=== PATIENT | female | born 1980 | race Caucasian/White ===

== ENCOUNTER 2023-02-09 22:53 | Outpatient (CLI) | payer SELFPAY | END 2023-02-09 23:59 | disposition EMS.NT | LOC: EMS 22:53 | DX: R19.7 Diarrhea, unspecified (principal); R55 Syncope and collapse ==

== ENCOUNTER 2023-03-07 21:27 | Emergency (ER) | payer OTHER ==
[2023-03-07 22:51] VITALS: BP 114/61
--- NOTE | 2023-03-07 23:10 | ED Physician Documentation ---
PD HPI ABD PAIN - Stated complaint Stated Complaint: V,D,BLOATING - Chief complaint Chief Complaint: Abd Pain - History obtained from History obtained from: Patient - Additional information Additional information: HPI from patient. Patient c/o nausea, vomiting, diarrhea. Symptoms began at approximately 7:30 PM tonight while at home. 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 Denies h/o similar symptoms, denies fever, denies chances of . 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 - Past Surgical History Past Surgical History: Yes - Present Medications Home Medications: Ambulatory Orders Medication Instructions Recorded Confirmed Ondansetron Odt [Zofran Odt] 4 mg TL Q6H PRN #14 tablet 03/07/23 - Allergies Allergies/Adverse Reactions: Allergies Allergy/AdvReac Type Severity Reaction Status Date / Time No Known Drug Allergies Allergy Verified 03/07/23 21:43 - Living Situation Living Arrangement: reports: At home PD ED PE NORMAL - Vitals Vital signs reviewed: Yes - General General: Alert and oriented X 3, No acute distress, Well developed/nourished - HEENT HEENT: Moist mucous membranes - Cardiac Cardiac: RRR, No murmur - Respiratory Respiratory: No respiratory distress, Clear bilaterally - Abdomen Abdomen: Soft, Non distended, Other (mild/moderate TTP epigastrium and RLQ without rebound or guarding) - Back Back: No CVA TTP Results - Vitals Vitals: Oxygen O2 Source Room air PD Medical Decision Making - ED course Complexity details: considered differential, d/w patient ED course: c/o n/v/d and found to have TTP in epigastrium and RLQ . I recommended IV for fluids, anti-nauseant (zofran), blood tests, as well as CT A/P; differential would include pancreatitis, cholelithiasis, cholecystitis, appendicitis. Patient declines all of this and says she just wants PO anti-nauseant at this time. She is given TL zofran and rx for same. Return precautions were carefully reviewed, and I encouraged her to return at any time she wants to be reevaluated, particularly if her symptoms worsen in any way. I discussed my concerns regarding the differential diagnosis and patient verbalizes understanding of these concerns and return precautions. Departure - Departure Disposition: 01 Home, Self Care Clinical Impression: Abdominal pain, Nausea & vomiting Condition: Good Instructions: ED Abdominal Pain Female Non-Specific Abdominal Pain, ED Diet Vomiting Diarrhea, ED Nausea Vomiting Prescriptions: Ondansetron Odt [Zofran Odt] 4 mg TL Q6H PRN #14 tablet PRN Reason: Nausea / Vomiting Comments: Based on your symptoms and physical exam, I recommended that we establish an IV for intravenous fluids and an antinausea medication, undertaking blood test, as well as a CT scan of your abdomen and pelvis. You have declined these tests and treatments. Please come back to the emergency department at any time that you feel you need to be reevaluated, but follow-up with your primary care provider as soon as can be arranged for reevaluation. Discharge Date/Time: 03/07/23 23:38
[2023-03-07] MEDS ORDERED: ONDANSETRON ODT 4 MG TABLET TL STA (23:32)
== END 2023-03-07 23:38 | disposition home or self-care (01) ==
LOC: ED 21:27
DX: R11.2 Nausea with vomiting, unspecified (principal); R19.7 Diarrhea, unspecified; R10.9 Unspecified abdominal pain
CPT/HCPCS: 99282; 99284; Q0162

== ENCOUNTER 2023-09-24 07:06 | Emergency (ER) | payer OTHER ==
[2023-09-24] MEDS ORDERED: SODIUM CHLORIDE 0.9% 1,000 ML IV STA (07:09)
[2023-09-24] MEDS ORDERED: ONDANSETRON 4 MG/2 ML VIAL IVP STA (07:09)
[2023-09-24 07:26] VITALS: O2SAT 100
--- NOTE | 2023-09-24 07:30 | ED Physician Documentation ---
PD HPI NVD - Stated complaint Stated Complaint: N/D/V/CHILLS - Chief complaint Chief Complaint: Abd Pain - History obtained from History obtained from: Patient - Additonal information Additional information: Patient comes to the emergency department chief complaint of nausea, vomiting, and diarrhea that started around 5:00 this morning. She states a couple other people in her household have been sick, one with similar GI symptoms. She states she has 7 kids at home and her is deployed and she has been under a lot of stress lately. The patient denies any fevers but has had some cold sweats when her nausea kicks out. She says she has some pressure in her epigastric area but otherwise no abdominal pain. No urinary or vaginal symptoms. She has a history of "gallbladder issues", but has never had her gallbladder removed. She has a history of tubal ligation, tubal ligation reversal, and fallopian tube removal. She does not remember which side. Patient states that she is on Zoloft and Colace but otherwise no medications. She is otherwise healthy. 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 - Past Surgical History Past Surgical History: Yes - Present Medications Home Medications: Ambulatory Orders Medication Instructions Recorded Confirmed Ondansetron Odt [Zofran Odt] 4 mg TL Q6H PRN #14 tablet 03/07/23 Ondansetron Odt [Zofran] 4 mg TL Q6H PRN #10 tablet 09/24/23 - Allergies Allergies/Adverse Reactions: Allergies Allergy/AdvReac Type Severity Reaction Status Date / Time No Known Drug Allergies Allergy Verified 03/07/23 21:43 - Social History Does the pt smoke?: No Smoking Status: Never smoker Does the pt drink ETOH?: No Does the pt have substance abuse?: No - Immunizations Immunizations are current?: Yes - POLST Patient has POLST: No PD ED PE NORMAL - Vitals Vital signs reviewed: Yes - General General: Alert and oriented X 3, No acute distress, Well developed/nourished, Other (The patient appears moderately uncomfortable but otherwise in no apparent distress.) - HEENT HEENT: Atraumatic, PERRL, EOMI, Moist mucous membranes - Neck Neck: Supple, no meningeal sign - Cardiac Cardiac: RRR, No murmur - Respiratory Respiratory: No respiratory distress, Clear bilaterally - Abdomen Abdomen: Soft, Non distended, Other (Mild diffuse tenderness across low abdomen, periumbilical area, and epigastric area. No rebound or guarding.) - Derm Derm: Normal color, Warm and dry, No rash - Extremities Extremities: No deformity, No edema - Neuro Neuro: Alert and oriented X 3 - Psych Psych: Normal mood, Normal affect Results - Vitals Vitals: Oxygen O2 Source Room air - Labs Labs: Laboratory Tests 09/24/23 09/24/23 07:27 07:27 WBC 6.2 RBC 4.68 Hgb 10.2 L Hct 33.1 L MCV 70.7 L MCH 21.8 L MCHC 30.8 L RDW 16.0 H Plt Count 219 MPV 12.3 H Neut # (Auto) 4.5 Lymph # (Auto) 1.2 L [place] # (Auto) 0.3 Eos # (Auto) 0.0 Baso # (Auto) 0.1 Absolute Nucleated RBC 0.00 Nucleated RBC % 0.0 Sodium 135 Potassium 3.5 Chloride 103 Carbon Dioxide 24 Anion Gap 8.0 BUN 8 Creatinine 0.8 Estimated GFR (MDRD) 79 L Glucose 110 H Calcium 9.5 Total Bilirubin 0.4 AST 12 ALT 8 L Alkaline Phosphatase 64 Total Protein 7.4 Albumin 4.5 Globulin 2.9 Albumin/Globulin Ratio 1.6 Lipase 29 PD Medical Decision Making - ED course Complexity details: reviewed results, re-evaluated patient, considered differential, d/w patient ED course: The patient was treated symptomatically with IV fluid, Phenergan and Zofran and was worked up with laboratory studies including ER abdominal panel and CBC. Labs were unremarkable, and pt was feeling better on re-evaluation, and I felt she was stable for d/c home. We have discussed home management of the sx, as well as the usual indications for return. Departure - Departure Disposition: Home, Self Care Clinical Impression: Gastroenteritis Condition: Stable Instructions: ED Gastroenteritis Viral Prescriptions: Ondansetron Odt [Zofran] 4 mg TL Q6H PRN #10 tablet PRN Reason: Nausea / Vomiting Comments: Your labs look good. You most likely have one of the many viral illnesses that are going around in the community at this time. In general, the worst of the symptoms usually last the first few days and then your digestive system gradually recovers. A prescription for nausea medication has been electronically transmitted to the [facility] pharmacy in [place], your pharmacy of choice on record. Please take these as needed. You should have only clear liquids until you have been without vomiting for 24 hours. In fact, it is advisable that you not put anything in her stomach for the next 6 hours to give your stomach a chance to settle down and recover. After that, you may take a melt in the mouth Zofran and then wait 30 to 60 minutes. After that, you may try taking 1 or 2 ice chips at a time or a small sip or 2 of water. If this stays down for 20 minutes, you may do it again. If you go through few cycles like this without vomiting, then you may gradually bring the sips closer together and begin to take an more liquid. If by tomorrow you have had no further vomiting, then you may begin to introduce simple starches, such as saltine crackers or Ramen noodles. Forms: PCP List Discharge Date/Time: 09/24/23 10:28
[2023-09-24 07:35] LABS: BASOPHILS # (AUTO) 0.1 10^3/uL (0.0-0.1); BASOPHILS % (AUTO) 1.3 %; EOSINOPHILS % (AUTO) 0.7 %; HCT - HEMATOCRIT 33.1 % (37.0-47.0); HGB - HEMOGLOBIN 10.2 g/dL (12.0-16.0); LYMPHOCYTES # (AUTO) 1.2 10^3/uL (1.5-3.5); LYMPHOCYTES % (AUTO) 19.3 %; MEAN CORPUSCULAR HEMOGLOBIN 21.8 pg (27.0-31.0); MEAN CORPUSCULAR HGB CONC 30.8 g/dL (32.0-36.0); MEAN CORPUSCULAR VOLUME 70.7 fL (81.0-99.0); MEAN PLATELET VOLUME 12.3 fL (7.9-10.8); MONOCYTES # (AUTO) 0.3 10^3/uL (0.0-1.0); NEUTROPHILS # (AUTO) 4.5 10^3/uL (1.5-6.6); NEUTROPHILS % (AUTO) 73.4 %; PLT - PLATELET COUNT 219 10^3/uL (130-450); RED BLOOD COUNT 4.68 10^6/uL (4.20-5.40); WHITE BLOOD COUNT 6.2 x10^3/uL (4.8-10.8)
[2023-09-24 07:45] LABS: ALBUMIN 4.5 g/dL (3.2-5.5); ALBUMIN/GLOBULIN RATIO 1.6 (1.0-2.2); BILIRUBIN,TOTAL 0.4 mg/dL (0.2-1.0); CALCIUM 9.5 mg/dL (8.5-10.3); CREATININE 0.8 mg/dL (0.6-1.3); POTASSIUM 3.5 mmol/L (3.5-4.5); TOTAL PROTEIN 7.4 g/dL (6.4-8.9)
[2023-09-24] MEDS ORDERED: PROMETHAZINE INJ 25 MG in SODIUM CHLORIDE 0.9% 50 ML IV STA (08:54)
[2023-09-24 10:33] VITALS: BP 114/60
== END 2023-09-24 10:28 | disposition home or self-care (01) ==
LOC: ED 07:06
DX: K52.9 Noninfective gastroenteritis and colitis, unspecified (principal)
CPT/HCPCS: 36415; 80053; 83690; 85025; 96365; 96375; 99283; 99284; J7040

== ENCOUNTER 2023-09-25 06:41 | Outpatient (CLI) | payer OTHER | END 2023-09-25 06:42 | disposition EMS.NT | LOC: EMS 06:41 | DX: R00.0 Tachycardia, unspecified (principal) ==

== ENCOUNTER 2023-09-26 03:55 | Emergency (ER) | payer OTHER ==
--- NOTE | 2023-09-26 04:10 | ED Physician Documentation ---
PD HPI CHEST PAIN - Stated complaint Stated Complaint: CHEST PX/ N/V - Chief complaint Chief Complaint: Cardiac - History obtained from History obtained from: Patient, Family (daughter) - Additional information Additional information: 43-year-old woman with History of anxiety on Zoloft, recent ED visit 2 days prior presents with similar symptoms tonight of nausea, vomiting, diarrhea for the past couple of days along with some epigastric pain radiating to the chest.Patient endorses + sick contacts (Children at home sick), 1 with similar GI symptoms. 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 Patient denies fevers but does endorse chills. Past surgical history tubal ligation, ligation reversal, fallopian tube removal. Her daughter notes that the patient takes a daily marijuana tincture and has had issues with nausea in the past. Daughter is concerned that this may be a chronic problem related to cannabis. Patient s tates she has had similar nausea in the past but denies improvement with hot showers. 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 Psych: Depression - Past Surgical History Past Surgical History: Yes - Present Medications Home Medications: Ambulatory Orders Medication Instructions Recorded Confirmed Ondansetron Odt [Zofran Odt] 4 mg TL Q6H PRN #14 tablet 03/07/23 Ondansetron Odt [Zofran] 4 mg TL Q6H PRN #10 tablet 09/24/23 Promethazine [Phenergan] 25 mg PO Q6H PRN #10 tablet 09/26/23 - Allergies Allergies/Adverse Reactions: Allergies Allergy/AdvReac Type Severity Reaction Status Date / Time No Known Drug Allergies Allergy Verified 03/07/23 21:43 - Social History Does the pt smoke?: No Smoking Status: Never smoker Does the pt drink ETOH?: No Does the pt have substance abuse?: No - Immunizations Immunizations are current?: Yes - POLST Patient has POLST: No PD ED PE NORMAL - Vitals Vital signs reviewed: Yes - General General: Alert and oriented X 3, No acute distress, Well developed/nourished, Other (Anxious appearing) - HEENT HEENT: Atraumatic, PERRL, EOMI - Neck Neck: Supple, no meningeal sign - Cardiac Cardiac: RRR - Respiratory Respiratory: No respiratory distress, Clear bilaterally - Abdomen Abdomen: Non tender, Non distended, Other (Epigastrium discomfort to palpation) - Derm Derm: Normal color, Warm and dry Results - Vitals Vitals: Vital Signs - 24 hr 09/26/23 09/26/23 09/26/23 04:01 04:06 05:30 Temperature 37 C 37 C 37 C Heart Rate 64 89 83 Respiratory 20 20 17 Rate Blood Pressure 143/78 H 108/67 127/85 H O2 Saturation 100 100 100 Oxygen O2 Source Room air - EKG (time done) 0400 EKG releavant findings:: EKG personally interpreted by author of this note. Relevant findings are: Rate: Rate (enter#) (64) Rhythm: NSR [place]: Normal Intervals: Normal NV QRS: Normal Ischemia: Normal ST segments - Labs Labs: Laboratory Tests 09/26/23 09/26/23 04:11 04:11 WBC 7.0 RBC 4.37 Hgb 9.3 L Hct 30.7 L MCV 70.3 L MCH 21.3 L MCHC 30.3 L RDW 16.1 H Plt Count 200 MPV 12.3 H Neut # (Auto) 4.5 Lymph # (Auto) 1.9 [place] # (Auto) 0.4 Eos # (Auto) 0.0 Baso # (Auto) 0.1 Absolute Nucleated RBC 0.00 Nucleated RBC % 0.0 Sodium 136 Potassium 3.1 L Chloride 105 Carbon Dioxide 23 Anion Gap 8.0 BUN 7 Creatinine 0.8 Estimated GFR (MDRD) 79 L Glucose 99 Calcium 9.2 Total Bilirubin 0.3 AST 11 ALT 6 L Alkaline Phosphatase 53 Troponin I High Sens 2.4 Total Protein 6.7 Albumin 4.1 Globulin 2.6 Albumin/Globulin Ratio 1.6 Lipase 43 PD Medical Decision Making - ED course ED course: 43-year-old woman nausea, vomiting, diarrhea and epigastric pain for the past 2 to 3 days with subjective chills. CBC, abdominal panel unremarkable aside from some anemia and mild hypokalemia, likely due to vomiting. patient is aware she has had anemia in the past but unsure of cause. EKG, chest x-ray benign. Symptomatic care provided with improvement in pain and nausea. Plan to follow- up outpatient with PCM for referral to GI. Recommendations were provided for GI specialist. Return precautions given. Departure - Departure Disposition: 01 Home, Self Care Clinical Impression: Atypical chest pain, Nausea and vomiting, Diarrhea Condition: Stable Instructions: ED Diet Vomiting Diarrhea Follow-Up: HORTENSIA ALMENDAREZ MD [Physician No Access] - Prescriptions: Promethazine [Phenergan] 25 mg PO Q6H PRN #10 tablet PRN Reason: Nausea / Vomiting Comments: You were seen in the emergency department for Nausea, vomiting, abdominal abdominal pain and chest pain. Your lab work looked okay except for some anemia and mildly low potassium. X-ray/ekg was normal. follow-up with your primary care provider to have this rechecked and to do further tests for anemia. Electronic prescription for phenergan was sent to your pharmacy. Please follow-up with GI (referral provided) and return to the emergency department if you have any new or worsening symptoms or other concerns. Forms: PCP List Discharge Date/Time: 09/26/23 05:30
[2023-09-26 04:27] LABS: BASOPHILS # (AUTO) 0.1 10^3/uL (0.0-0.1); BASOPHILS % (AUTO) 1.3 %; EOSINOPHILS % (AUTO) 0.6 %; HCT - HEMATOCRIT 30.7 % (37.0-47.0); HGB - HEMOGLOBIN 9.3 g/dL (12.0-16.0); LYMPHOCYTES # (AUTO) 1.9 10^3/uL (1.5-3.5); LYMPHOCYTES % (AUTO) 27.4 %; MEAN CORPUSCULAR HEMOGLOBIN 21.3 pg (27.0-31.0); MEAN CORPUSCULAR HGB CONC 30.3 g/dL (32.0-36.0); MEAN CORPUSCULAR VOLUME 70.3 fL (81.0-99.0); MEAN PLATELET VOLUME 12.3 fL (7.9-10.8); MONOCYTES # (AUTO) 0.4 10^3/uL (0.0-1.0); MONOCYTES % (AUTO) 6.1 %; NEUTROPHILS # (AUTO) 4.5 10^3/uL (1.5-6.6); NEUTROPHILS % (AUTO) 64.3 %; PLT - PLATELET COUNT 200 10^3/uL (130-450); RED BLOOD COUNT 4.37 10^6/uL (4.20-5.40); RED CELL DISTRIBUTION WIDTH 16.1 % (12.0-15.0)
[2023-09-26 04:28] VITALS: O2SAT 100
[2023-09-26 04:37] LABS: ALBUMIN 4.1 g/dL (3.2-5.5); ALBUMIN/GLOBULIN RATIO 1.6 (1.0-2.2); BILIRUBIN,TOTAL 0.3 mg/dL (0.2-1.0); CALCIUM 9.2 mg/dL (8.5-10.3); CREATININE 0.8 mg/dL (0.6-1.3); POTASSIUM 3.1 mmol/L (3.5-4.5); TOTAL PROTEIN 6.7 g/dL (6.4-8.9)
[2023-09-26] MEDS: SODIUM CHLORIDE 0.9% 1,000 ML IV STA (04:39)
[2023-09-26 04:42] LABS: TROPONIN I HIGH SENSITIVITY 2.4 ng/L (2.3-14.8)
[2023-09-26] MEDS: LORazepam 2 MG/ML VIAL IVP STA (04:47)
[2023-09-26] MEDS: KETOROLAC 15 MG/ML VIAL IVP STA (04:47)
[2023-09-26] MEDS: FAMOTIDINE 20 MG/2 ML VIAL IVP STA (04:48)
[2023-09-26] MEDS: PROMETHAZINE INJ 25 MG in SODIUM CHLORIDE 0.9% 50 ML IV STA (04:48)
[2023-09-26] MEDS ORDERED: PROMETHAZINE 25 MG/1 ML VIAL ONE (04:56)
[2023-09-26] MEDS ORDERED: POTASSIUM CHLOR 10 MEQ/100 ML 10 MEQ/100 ML BAG IV STA (05:13)
[2023-09-26 05:31] VITALS: BP 127/85
--- NOTE | 2023-09-26 08:06 | XRAY Report ---
PROCEDURE: Chest 1 View X-Ray INDICATIONS: Chest pain TECHNIQUE: One view of the chest was acquired. COMPARISON: None. FINDINGS: Surgical changes and devices: None. Lungs and pleura: No pleural effusions or pneumothorax. Lungs are clear. Mediastinum: Mediastinal contours appear normal. Heart size is normal. Bones and chest wall: No suspicious bony lesions. Overlying soft tissues appear unremarkable. IMPRESSION: No acute radiographic abnormality. Agree with preliminary report. Reviewed by: Andrade Vines MD on 09/26/2023 8:05 AM [facility] Approved by: Andrade Vines MD on 09/26/2023 8:05 AM [facility] Station ID: [id number]
== END 2023-09-26 05:30 | disposition home or self-care (01) ==
LOC: ED 03:55
DX: R07.89 Other chest pain (principal); R11.2 Nausea with vomiting, unspecified; R19.7 Diarrhea, unspecified
CPT/HCPCS: 36415; 80053; 83690; 84484; 85025; 93005; 96374; 96375; 99284

== ENCOUNTER 2023-10-31 15:35 | Emergency (ER) | payer OTHER ==
[2023-10-31 15:42] VITALS: O2SAT 100
[2023-10-31] MEDS ORDERED: SODIUM CHLORIDE 0.9% 1,000 ML IV STA (15:49)
[2023-10-31] MEDS ORDERED: ONDANSETRON 4 MG/2 ML VIAL IVP STA (15:49)
[2023-10-31] MEDS ORDERED: MECLIZINE 12.5 MG TABLET PO STA (15:50)
--- NOTE | 2023-10-31 16:00 | ED Physician Documentation ---
History of Present Illness - Stated complaint Stated Complaint: SHAKY/N/V/STOMACH PX - Chief complaint Chief Complaint: Abd Pain - History obtained from History obtained from: Patient - Additonal information Additional information: Patient is a 43-year-old female with a history of anxiety (on Zoloft) presenting for evaluation of vertigo along with nausea and vomiting starting an hour ago. She reports also feeling lightheaded and thinks she may have had a syncopal episode while seated in the kitchen that was brief and witnessed by her daughter. Denies head injury. Does not take a blood thinner. Reports being under significant amount of stress as she has 7 children and her has been deployed since August. She tried taking a Dramamine without improvement in her symptoms. She believes she also tried taking a dose of meclizine that she had at home but also believes that she vomited this up with the Dramamine. She has had vertigo in the past but Usually is able to keep down medications which help her.Denies recent cold-like symptoms. No chest pain or shortness of air. Denies concerns for as again her spouse is deployed. No diarrhea or dysuria. Review of Systems Constitutional: denies: Fever Cardiac: denies: Chest pain / pressure Respiratory: denies: Dyspnea GI: reports: Nausea, Vomiting. denies: Abdominal Pain : denies: Dysuria Neurologic: reports: Syncope. 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 : None HEENT: None Psych: Depression Musculoskeletal: None Derm: None - Past Surgical History Past Surgical History: Yes - Present Medications Home Medications: Ambulatory Orders Medication Instructions Recorded Confirmed Ondansetron Odt [Zofran Odt] 4 mg TL Q6H PRN #14 tablet 03/07/23 Ondansetron Odt [Zofran] 4 mg TL Q6H PRN #10 tablet 09/24/23 Promethazine [Phenergan] 25 mg PO Q6H PRN #10 tablet 09/26/23 Meclizine HCl [Motion Sickness] 25 mg PO Q6H PRN #20 tablet 10/31/23 Ondansetron Odt [Zofran] 4 mg TL Q6H PRN #10 tablet 10/31/23 - Allergies Allergies/Adverse Reactions: Allergies Allergy/AdvReac Type Severity Reaction Status Date / Time No Known Drug Allergies Allergy Verified 10/31/23 15:38 - Social History Does the pt smoke?: No Smoking Status: Never smoker Does the pt drink ETOH?: No Does the pt have substance abuse?: No - Immunizations Immunizations are current?: Yes - POLST Patient has POLST: No PD ED PE NORMAL - General General: Alert and oriented X 3, No acute distress, Well developed/nourished - HEENT HEENT: Atraumatic, PERRL, EOMI, Moist mucous membranes, Pharynx benign, Other (No rotary nystagmus; Vertigo worse with head turning to right) - Neck Neck: Supple, no meningeal sign - Cardiac Cardiac: RRR, Strong equal pulses - Respiratory Respiratory: No respiratory distress, Clear bilaterally - Abdomen Abdomen: Normal bowel sounds, Soft, Non tender, Non distended - Derm Derm: Warm and dry - Extremities Extremities: No deformity - Neuro Neuro: Alert and oriented X 3, senior account executive 2-12 intact, No motor deficit, No sensory deficit, Normal speech Results - Vitals Vitals: Vital Signs - 24 hr 10/31/23 10/31/23 15:38 17:19 Temperature 36.8 C 36.9 C Heart Rate 64 60 Respiratory 16 18 Rate Blood Pressure 121/57 L 107/50 L O2 Saturation 100 100 Oxygen O2 Source Room air - EKG (time done) 1615 EKG releavant findings:: EKG personally interpreted by author of this note. Relevant findings are: Rate 57, sinus bradycardia, no STEMI, QTc 426 - Labs Labs: Laboratory Tests 10/31/23 10/31/23 10/31/23 16:00 16:00 16:00 WBC 7.5 RBC 4.40 Hgb 9.3 L Hct 30.5 L MCV 69.3 L MCH 21.1 L MCHC 30.5 L RDW 17.3 H Plt Count 188 MPV 11.5 H Neut # (Auto) 5.0 Lymph # (Auto) 1.9 [place] # (Auto) 0.5 Eos # (Auto) 0.0 Baso # (Auto) 0.1 Absolute Nucleated RBC 0.00 Nucleated RBC % 0.0 Manual Slide Review Indicated Platelet Estimate NORMAL (130-450,000) Platelet Morphology NORMAL APPEARANCE RBC Morph Micro Appear 1+ OVALOCYTES Sodium 135 Potassium 3.5 Chloride 102 Carbon Dioxide 23 Anion Gap 10.0 BUN 7 Creatinine 0.7 Estimated GFR (MDRD) 92 Glucose 97 Calcium 9.6 Total Bilirubin 0.3 AST 12 ALT 8 L Alkaline Phosphatase 68 Total Protein 7.8 Albumin 4.5 Globulin 3.3 Albumin/Globulin Ratio 1.4 Lipase 29 Serum HCG, Qual NEGATIVE PD Medical Decision Making - ED course Complexity details: reviewed results, re-evaluated patient, d/w patient ED course: Patient is a 43-year-old female presenting for evaluation of vertigo with nausea and vomiting starting earlier today. Has a history of vertigo and attempted to take Dramamine and meclizine at home but vomited this up. Also reports thinking she may have had a syncopal episode while sitting at his kitchen chair. No witnessed seizure activity. No head injury. Her neuroexam here is normal. Given her age and lack of risk factors I doubt a central process as the cause of her vertigo and exam is more supportive of peripheral vertigo. EKG reviewed and is nonischemic with no signs of arrhythmia. No chest pain to suggest ACS. CBC and chemistries reviewed and without significant findings. She is feeling much better after IV fluids, Zofran and meclizine here and is able to ambulate and turn her head without any difficulty. Patient counseled on need for close follow-up with primary care provider. 1644 - Patient reports feeling much better. She is able to turn her head [id number] without any difficulty now.Patient admits that she has been vaping cannabis daily for the last year and a half to help manage anxiety. We discussed that it could cause symptoms such as nausea and vomiting and she is wanting to try and cut down her usage. Departure - Departure Disposition: 01 Home, Self Care Clinical Impression: Syncope, Anemia, Vertigo, Nausea & vomiting Condition: Stable Instructions: ED Vertigo Unspecified Prescriptions: Meclizine HCl [Motion Sickness] 25 mg PO Q6H PRN #20 tablet PRN Reason: Dizziness Ondansetron Odt [Zofran] 4 mg TL Q6H PRN #10 tablet PRN Reason: Nausea / Vomiting Comments: Your labs are without any significant changes. You have anemia at baseline which is unchanged over the last month. Please continue to try and increase your iron intake. I have sent prescriptions for vertigo and an antinausea medication to [facility] in [place]. I would recommend close follow-up with your primary care provider. Return to the ER with any worsening symptoms. Forms: PCP List Discharge Date/Time: 10/31/23 17:22
[2023-10-31 16:08] LABS: BASOPHILS # (AUTO) 0.1 10^3/uL (0.0-0.1); BASOPHILS % (AUTO) 0.9 %; EOSINOPHILS % (AUTO) 0.4 %; HCT - HEMATOCRIT 30.5 % (37.0-47.0); HGB - HEMOGLOBIN 9.3 g/dL (12.0-16.0); LYMPHOCYTES # (AUTO) 1.9 10^3/uL (1.5-3.5); LYMPHOCYTES % (AUTO) 25.5 %; MEAN CORPUSCULAR HEMOGLOBIN 21.1 pg (27.0-31.0); MEAN CORPUSCULAR HGB CONC 30.5 g/dL (32.0-36.0); MEAN CORPUSCULAR VOLUME 69.3 fL (81.0-99.0); MEAN PLATELET VOLUME 11.5 fL (7.9-10.8); MONOCYTES # (AUTO) 0.5 10^3/uL (0.0-1.0); MONOCYTES % (AUTO) 6.2 %; NEUTROPHILS % (AUTO) 66.7 %; PLT - PLATELET COUNT 188 10^3/uL (130-450); RED CELL DISTRIBUTION WIDTH 17.3 % (12.0-15.0); SLIDE REVIEW? Indicated; WHITE BLOOD COUNT 7.5 x10^3/uL (4.8-10.8)
[2023-10-31 16:19] LABS: ALBUMIN 4.5 g/dL (3.2-5.5); ALBUMIN/GLOBULIN RATIO 1.4 (1.0-2.2); BILIRUBIN,TOTAL 0.3 mg/dL (0.2-1.0); CALCIUM 9.6 mg/dL (8.5-10.3); CREATININE 0.7 mg/dL (0.6-1.3); POTASSIUM 3.5 mmol/L (3.5-4.5); TOTAL PROTEIN 7.8 g/dL (6.4-8.9)
[2023-10-31 16:28] LABS: PLATELET ESTIMATE, MANUAL NORMAL (130-450,000) (NORMAL); PLATELET MORPHOLOGY NORMAL APPEARANCE (NORMAL)
[2023-10-31 16:36] LABS: HCG,QUALITATIVE BLOOD NEGATIVE
[2023-10-31 17:23] VITALS: BP 107/50
== END 2023-10-31 17:22 | disposition home or self-care (01) ==
LOC: ED 15:35
DX: R42 Dizziness and giddiness (principal); R11.2 Nausea with vomiting, unspecified; R55 Syncope and collapse; F41.9 Anxiety disorder, unspecified; D64.9 Anemia, unspecified
CPT/HCPCS: 36415; 80053; 83690; 84703; 85025; 93005; 96374; 99284; A9270

== ENCOUNTER 2024-01-16 09:41 | Outpatient (CLI) | payer OTHER ==
[2024-01-16 23:07] LABS: BACTERIAL VAGINOSIS DNA POSITIVE (NEGATIVE); CANDIDA GLABRATA DNA NEGATIVE (NEGATIVE); CANDIDA GROUP DNA POSITIVE (NEGATIVE); CANDIDA KRUSEI DNA NEGATIVE (NEGATIVE); TRICHOMONAS VAGINALIS DNA NEGATIVE (NEGATIVE)
== END 2024-01-16 09:42 | disposition home or self-care (01) ==
LOC: LAB 09:41
PROVIDERS: ATTEND Nurse Practitioner
DX: N39.0 Urinary tract infection, site not specified (principal); N89.8 Other specified noninflammatory disorders of vagina
CPT/HCPCS: 81514; 87086

== ENCOUNTER 2024-02-26 07:08 | Emergency (ER) | payer OTHER ==
--- NOTE | 2024-02-26 08:08 | ED Physician Documentation ---
History of Present Illness - Stated complaint Stated Complaint: NAUSEA,DISCOMFORT - Chief complaint Chief Complaint: Abd Pain - History obtained from History obtained from: Patient - Additonal information Additional information: The patient comes to the emergency department with chief complaint of nausea. She states that it happens to her most mornings and that sometimes it can be debilitating. She usually is able to take some Zofran at home and sometimes dicyclomine and get under control but today, she has not been able to. She actually has a GI appointment this afternoon for this very problem but states that she is just been so miserable she finally needed to come in. She states she has not actually vomited. No fevers or chills. No abdominal pain that is unusual. No changes in her bowel movements. She states that this episode is the same in character as prior episodes. The last time she had to come to the ED for this was October, she states. No other complaints at this time. 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 HEENT: None Psych: Depression Musculoskeletal: None Derm: None - Past Surgical History Past Surgical History: Yes /MAGNETIC PROSPECTING SUPERVISOR: Tubal ligation - Present Medications Home Medications: Ambulatory Orders Medication Instructions Recorded Confirmed Meclizine HCl [Motion Sickness] 25 mg PO Q6H PRN #20 tablet 10/31/23 02/26/24 Ondansetron Odt [Zofran] 4 mg TL Q6H PRN #10 tablet 10/31/23 02/26/24 Sertraline [Zoloft] 50 mg PO DAILY 02/26/24 02/26/24 - Allergies Allergies/Adverse Reactions: Allergies Allergy/AdvReac Type Severity Reaction Status Date / Time No Known Drug Allergies Allergy Verified 02/26/24 07:35 - Social History Does the pt smoke?: No Smoking Status: Never smoker Does the pt drink ETOH?: No Does the pt have substance abuse?: No - Immunizations Immunizations are current?: Yes - POLST Patient has POLST: No PD ED PE NORMAL - Vitals Vital signs reviewed: Yes - General General: Alert and oriented X 3, No acute distress, Well developed/nourished - HEENT HEENT: Atraumatic, PERRL, EOMI, Moist mucous membranes - Neck Neck: Supple, no meningeal sign - Cardiac Cardiac: RRR, No murmur - Respiratory Respiratory: No respiratory distress, Clear bilaterally - Abdomen Abdomen: Soft, Non tender, Non distended - Derm Derm: Normal color, Warm and dry, No rash - Extremities Extremities: No deformity, No edema - Neuro Neuro: Alert and oriented X 3 - Psych Psych: Normal mood, Normal affect Results - Vitals Vitals: Oxygen O2 Source Room air - Labs Labs: Laboratory Tests 02/26/24 02/26/24 07:58 07:58 WBC 9.2 RBC 4.18 L Hgb 8.0 L Hct 27.5 L MCV 65.8 L MCH 19.1 L MCHC 29.1 L RDW 18.6 H Plt Count 203 Neut # (Auto) 7.4 H Lymph # (Auto) 1.2 L [place] # (Auto) 0.5 Eos # (Auto) 0.0 Baso # (Auto) 0.1 Absolute Nucleated RBC 0.00 Nucleated RBC % 0.0 Sodium 136 Potassium 4.1 Chloride 104 Carbon Dioxide 27 Anion Gap 5.0 L BUN 9 Creatinine 0.7 Estimated GFR (MDRD) 92 Glucose 97 Calcium 9.6 Total Bilirubin 0.3 AST 12 ALT 8 L Alkaline Phosphatase 55 Total Protein 7.3 Albumin 4.1 Globulin 3.2 Albumin/Globulin Ratio 1.3 Lipase 37 PD Medical Decision Making - ED course Complexity details: reviewed results, re-evaluated patient, considered differential, d/w patient ED course: Patient was treated symptomatically with IV fluids, Phenergan, and worked up with labs, which were negative. She is stable for d/c home. We have discussed the importance of following up this afternoon with GI, as planned. Departure - Departure Disposition: Home, Self Care Clinical Impression: Nausea Condition: Stable Instructions: ED Nausea Vomiting Comments: Your labs look good. You have been treated with Phenergan and dicyclomine as well as IV fluids today. Please follow-up with the pollution control technician, as planned. Forms: PCP List Discharge Date/Time: 02/26/24 09:00
[2024-02-26 08:10] LABS: BASOPHILS # (AUTO) 0.1 10^3/uL (0.0-0.1); BASOPHILS % (AUTO) 1.2 %; EOSINOPHILS % (AUTO) 0.4 %; HCT - HEMATOCRIT 27.5 % (37.0-47.0); LYMPHOCYTES # (AUTO) 1.2 10^3/uL (1.5-3.5); LYMPHOCYTES % (AUTO) 12.6 %; MEAN CORPUSCULAR HEMOGLOBIN 19.1 pg (27.0-31.0); MEAN CORPUSCULAR HGB CONC 29.1 g/dL (32.0-36.0); MEAN CORPUSCULAR VOLUME 65.8 fL (81.0-99.0); MONOCYTES # (AUTO) 0.5 10^3/uL (0.0-1.0); MONOCYTES % (AUTO) 5.3 %; NEUTROPHILS # (AUTO) 7.4 10^3/uL (1.5-6.6); NEUTROPHILS % (AUTO) 80.1 %; PLT - PLATELET COUNT 203 10^3/uL (130-450); RED BLOOD COUNT 4.18 10^6/uL (4.20-5.40); RED CELL DISTRIBUTION WIDTH 18.6 % (12.0-15.0); WHITE BLOOD COUNT 9.2 x10^3/uL (4.8-10.8)
[2024-02-26] MEDS: PROMETHAZINE INJ 25 MG in SODIUM CHLORIDE 0.9% 50 ML IV STA (08:12)
[2024-02-26] MEDS: SODIUM CHLORIDE 0.9% 1,000 ML IV STA (08:12)
[2024-02-26] MEDS: DICYCLOMINE 10 MG CAPSULE PO STA (08:13)
[2024-02-26] MEDS: DROPERIDOL 5 MG/2 ML VIAL IVP STA (08:19)
[2024-02-26 08:20] LABS: ALBUMIN 4.1 g/dL (3.2-5.5); ALBUMIN/GLOBULIN RATIO 1.3 (1.0-2.2); BILIRUBIN,TOTAL 0.3 mg/dL (0.2-1.0); CALCIUM 9.6 mg/dL (8.5-10.3); CREATININE 0.7 mg/dL (0.6-1.3); POTASSIUM 4.1 mmol/L (3.5-4.5); TOTAL PROTEIN 7.3 g/dL (6.4-8.9)
[2024-02-26 09:09] VITALS: BP 109/73; O2SAT 99
== END 2024-02-26 09:00 | disposition home or self-care (01) ==
LOC: ED 07:08
DX: R11.0 Nausea (principal)
CPT/HCPCS: 36415; 80053; 83690; 85025; 96365; 99283; 99284; A9270; J7040

== ENCOUNTER 2024-04-21 07:08 | Emergency (ER) | payer OTHER ==
[2024-04-21 07:32] VITALS: O2SAT 100
[2024-04-21] MEDS: ONDANSETRON ODT 4 MG TABLET TL STA (07:47)
--- NOTE | 2024-04-21 07:48 | ED Physician Documentation ---
PD HPI NVD - Stated complaint Stated Complaint: NAUSEA - Chief complaint Chief Complaint: Abd Pain - History obtained from History obtained from: Patient - Additonal information Additional information: Patient is a 44-year-old female presenting for evaluation of nausea this morning. Patient reports a long history of nausea primarily in the morning. Usually she takes medication at night to prevent this in the morning but has run out of Phenergan 3 weeks ago. She was seen by GI last week and had an upper endoscopy and colonoscopy. She reports there were no significant findings. She had been doing well recently and when she ran out of Phenergan she was using [id number] Dramamine which was also helping. However last night she decided not to try any medications as she had been doing well but this morning woke up with significant nausea. She did try the Dramamine at 4:00 which did not help. She reports having some dry heaving this morning but no actual emesis. No diarrhea. No fevers, chest pain, trouble breathing or abdominal pain.Has had prior tubal ligation but otherwise no abdominal surgeries. Review of Systems Constitutional: denies: Fever Cardiac: denies: Chest pain / pressure Respiratory: denies: Dyspnea GI: reports: Nausea. 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 HEENT: None Psych: Depression Musculoskeletal: None Derm: None - Past Surgical History Past Surgical History: Yes /MECHANIC ASSISTANT: Tubal ligation - Present Medications Home Medications: Ambulatory Orders Medication Instructions Recorded Confirmed Sertraline [Zoloft] 50 mg PO DAILY 02/26/24 04/21/24 Ondansetron Odt [Zofran] 4 mg TL Q6H PRN #10 tablet 04/21/24 - Allergies Allergies/Adverse Reactions: Allergies Allergy/AdvReac Type Severity Reaction Status Date / Time No Known Drug Allergies Allergy Verified 04/21/24 07:26 - Social History Does the pt smoke?: No Smoking Status: Never smoker Does the pt drink ETOH?: No Does the pt have substance abuse?: No - Immunizations Immunizations are current?: Yes - POLST Patient has POLST: No PD ED PE NORMAL - General General: Alert and oriented X 3, No acute distress, Well developed/nourished - HEENT HEENT: Atraumatic - Neck Neck: Supple, no meningeal sign - Cardiac Cardiac: RRR, Strong equal pulses - Respiratory Respiratory: No respiratory distress, Clear bilaterally - Abdomen Abdomen: Normal bowel sounds, Soft, Non tender, Non distended - Derm Derm: Warm and dry - Neuro Neuro: Normal speech Results - Vitals Vitals: Vital Signs - 24 hr 04/21/24 04/21/24 07:19 08:50 Temperature 36.4 C L Heart Rate 57 L 61 Respiratory 20 16 Rate Blood Pressure 111/49 L 104/58 L O2 Saturation 100 100 Oxygen O2 Source Room air - Labs Labs: Laboratory Tests 04/21/24 07:50 Urine Color YELLOW Urine Clarity CLEAR Urine pH 6.5 Ur Specific [place] 1.010 Urine Protein NEGATIVE Urine Glucose (UA) NEGATIVE Urine Ketones NEGATIVE Urine Occult Blood MODERATE H Urine Nitrite NEGATIVE Urine Bilirubin NEGATIVE Urine Urobilinogen 0.2 (NORMAL) Ur Leukocyte Esterase NEGATIVE Urine RBC 0-5 Urine WBC 0-3 Ur Squamous Epith Cells NONE SEEN Urine Bacteria None Seen Ur Microscopic Review INDICATED Urine Culture Comments NOT INDICATED Urine HCG, Qual NEGATIVE PD Medical Decision Making - ED course Complexity details: re-evaluated patient ED course: Patient is a 44-year-old female presenting for evaluation of nausea. States that this is a chronic issue for her and she is out of her nausea medication and [id number] Dramamine was not helping today. Recent upper and lower endoscopies without clear etiology for her symptoms. Her abdominal exam is benign. Urine analysis is negative for . Patient is feeling better after ODT. No vomiting or diarrhea to suggest electrolyte loss. Patient declines need for IV medication, fluids. She is comfortable with plan for discharge and will have continued follow-up with her PCP and GI. Departure - Departure Disposition: 01 Home, Self Care Clinical Impression: Nausea Condition: Stable Instructions: ED Nausea Vomiting Prescriptions: Ondansetron Odt [Zofran] 4 mg TL Q6H PRN #10 tablet PRN Reason: Nausea / Vomiting Comments: I have sent a prescription for an antinausea medication called Zofran to [facility] in [place]. Please use as needed. Please continue to have close follow-up with your GI doctor or primary care regarding your ongoing symptoms. Please return to the emergency department if you develop any worsening symptoms such as abdominal pain, vomiting, any other concerns. Forms: PCP List Discharge Date/Time: 04/21/24 08:51
[2024-04-21 07:57] LABS: BILIRUBIN,URINE NEGATIVE (NEGATIVE); GLUCOSE, URINE (UA) NEGATIVE (NEGATIVE); KETONES,URINE (UA) NEGATIVE (NEGATIVE); LEUKOCYTE ESTERASE, URINE NEGATIVE (NEGATIVE); NITRITE,URINE NEGATIVE (NEGATIVE); OCCULT BLOOD,URINE MODERATE (NEGATIVE); PH,URINE 6.5 PH (5.0-7.5); PROTEIN,URINE NEGATIVE (NEGATIVE); UROBILINOGEN,URINE 0.2 (NORMAL) E.U./dL (NORMAL)
[2024-04-21 07:59] LABS: HCG UR QUAL NEGATIVE
[2024-04-21 08:00] LABS: CLARITY,URINE CLEAR (CLEAR)
[2024-04-21 08:04] LABS: BACTERIA,URINE None Seen /HPF (None Seen); RBC,URINE 0-5 /HPF (0-5); SQUAMOUS EPITHELIAL CELL,UR NONE SEEN (<= Few); WBC,URINE 0-3 /HPF (0-5)
[2024-04-21 08:52] VITALS: BP 104/58
== END 2024-04-21 08:51 | disposition home or self-care (01) ==
LOC: ED 07:08
DX: R11.0 Nausea (principal)
CPT/HCPCS: 81001; 81025; 99283; Q0162; 81003; 87086

== ENCOUNTER 2024-05-17 06:21 | Emergency (ER) | payer OTHER ==
--- NOTE | 2024-05-17 07:15 | ED Physician Documentation ---
PD HPI NVD - Stated complaint Stated Complaint: NAUSEA - Chief complaint Chief Complaint: Abd Pain - History obtained from History obtained from: Patient - History of Present Illness Timing - onset: How many months ago (9), Chronic Timing - duration: Months (9) Timing - details: Still present, Waxing and waning (largely in mornings but some through the day, anyi the past week.). No: Intermittant Associated symptoms: Abdominal pain (intermittent cramping mainly epigastric.), Loss of appetite. 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 HEENT: None Psych: Depression Musculoskeletal: None Derm: None - Past Surgical History Past Surgical History: Yes /BLOOD BANK ORDER CONTROL CLERK: Tubal ligation - Present Medications Home Medications: Ambulatory Orders Medication Instructions Recorded Confirmed Sertraline [Zoloft] 50 mg PO DAILY 02/26/24 05/17/24 Ondansetron Odt [Zofran] 4 mg TL Q6H PRN #10 tablet 04/21/24 05/17/24 Metoclopramide [Reglan] 10 mg PO HS #30 tablet 05/17/24 Pantoprazole [Protonix] 45 mg PO DAILY 30 Days #33.75 05/17/24 tablet Promethazine [Phenergan] 25 mg PO Q6H PRN #30 tab 05/17/24 Sucralfate [Carafate] 1 gm PO HS 30 Days #300 ml 05/17/24 polyethylene glycoL 3350(BULK) 17 gm PO DAILY PRN #1 each 05/17/24 [Miralax] - Allergies Allergies/Adverse Reactions: Allergies Allergy/AdvReac Type Severity Reaction Status Date / Time No Known Drug Allergies Allergy Verified 04/21/24 07:26 - Social History Does the pt smoke?: No Smoking Status: Never smoker Does the pt drink ETOH?: No Does the pt have substance abuse?: No - Immunizations Immunizations are current?: Yes - POLST Patient has POLST: No PD ED PE NORMAL - Vitals Vital signs reviewed: Yes - General General: Alert and oriented X 3, No acute distress, Well developed/nourished - HEENT HEENT: Pharynx benign - Neck Neck: Supple, no meningeal sign, No adenopathy - Cardiac Cardiac: RRR, No murmur - Respiratory Respiratory: Clear bilaterally - Abdomen Abdomen: Soft, Non tender, Non distended - Derm Derm: Normal color, Warm and dry - Neuro Neuro: Alert and oriented X 3, No motor deficit - Psych Psych: Normal mood Results - Vitals Vitals: Oxygen O2 Source Room air PD Medical Decision Making - ED course Complexity details: re-evaluated patient (improved symptoms with IV fludisa nd meds. Feeling able to go. ), considered differential (she has had chronic nausea that is worse recently. Has had GI eval and scopes without clear resolution. Consider but did not see need for imaging as nonfocal mild pain and mainly nausea, anyi in mornings. Can give meds here and try multi-med approach from here. ), d/w patient Departure - Departure Disposition: Home, Self Care Clinical Impression: Chronic nausea Condition: Stable Record reviewed to determine appropriate education?: Yes Follow-Up: [facility] [Provider Group] Prescriptions: Sucralfate [Carafate] 1 gm PO HS 30 Days #300 ml polyethylene glycoL 3350(BULK) [Miralax] 17 gm PO DAILY PRN #1 each PRN Reason: Constipation Promethazine [Phenergan] 25 mg PO Q6H PRN #30 tab PRN Reason: Nausea / Vomiting Pantoprazole [Protonix] 45 mg PO DAILY 30 Days #33.75 tablet Metoclopramide [Reglan] 10 mg PO HS #30 tablet Comments: We can try multiple approach with some medication at night to include the metoclopramide (Reglan) as well as sacral fate to coat the stomach lining. I would take the Reglan perhaps in half hour before such so the sacral fate does not affect absorption. Resume a acid reducing medicine. I wrote for pantoprazole and see if that has a better effect than the omeprazole had been. Then the promethazine/Phenergan as needed for nausea in the mornings and through the day. Continue with low-fat diet etc. Regarding the stool, you could try in terms mixing the docusate with MiraLAX on alternating days or short periods and see if that has a better consistency on bowel movements. You could add back a little bit of daily fiber as well. Your last blood test here did show anemia. Iron supplements can be hard on the stomach and cause constipation and nausea so makes sense for your primary to be looking at iron infusions. Continue with your primary on that. I sent your prescriptions to [facility] pharmacy. Forms: PCP List Discharge Date/Time: 05/17/24 08:24
[2024-05-17] MEDS: ONDANSETRON ODT 4 MG TABLET TL STA (07:26)
[2024-05-17] MEDS: PROMETHAZINE 25 MG TABLET PO STA (08:19)
[2024-05-17 08:35] VITALS: BP 110/62; O2SAT 99
== END 2024-05-17 08:24 | disposition home or self-care (01) ==
LOC: ED 06:21
DX: R11.0 Nausea (principal); R10.9 Unspecified abdominal pain
CPT/HCPCS: 99283; Q0162; Q0169

== ENCOUNTER 2024-06-18 07:47 | Emergency (ER) | payer OTHER ==
--- NOTE | 2024-06-18 08:03 | ED Physician Documentation ---
PD HPI NVD - Stated complaint Stated Complaint: NAUSEA,DIARRHEA - Chief complaint Chief Complaint: General - History obtained from History obtained from: Patient - History of Present Illness Timing - onset: Chronic Timing - duration: Days (worse symptoms the past few days. Had been doing better with Reglan at night but ran out and PCP appt not for couple of weeks.) Timing - details: Waxing and waning Associated symptoms: Abdominal pain (intermittent cramping upper abd;), Loss of appetite. No: Fever, Hematemesis, Melena Contributing factors: Other (has had this ongoing for awhile with GI eval and scopes, labs, imaging. No clear dx as yet.). No: Sick contact Improved by: Meds (reglan was working well, Rx from ER so limited term supply.). 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 HEENT: None Psych: Depression Musculoskeletal: None Derm: None - Past Surgical History Past Surgical History: Yes /PRODUCTION PROOFREADER: Tubal ligation - Present Medications Home Medications: Ambulatory Orders Medication Instructions Recorded Confirmed Sertraline [Zoloft] 50 mg PO DAILY 02/26/24 05/17/24 Ondansetron Odt [Zofran] 4 mg TL Q6H PRN #10 tablet 04/21/24 05/17/24 Pantoprazole [Protonix] 45 mg PO DAILY 30 Days #33.75 05/17/24 tablet Promethazine [Phenergan] 25 mg PO Q6H PRN #30 tab 05/17/24 Sucralfate [Carafate] 1 gm PO HS 30 Days #300 ml 05/17/24 polyethylene glycoL 3350(BULK) 17 gm PO DAILY PRN #1 each 05/17/24 [Miralax] Famotidine [Pepcid] 20 mg PO DAILY #30 tablet 06/18/24 Metoclopramide [Reglan] 10 mg PO HS 30 Days #30 tablet 06/18/24 Sertraline [Zoloft] 75 mg PO DAILY #45 tablet 06/18/24 - Allergies Allergies/Adverse Reactions: Allergies Allergy/AdvReac Type Severity Reaction Status Date / Time No Known Drug Allergies Allergy Verified 06/18/24 07:57 - Social History Does the pt smoke?: No Smoking Status: Never smoker Does the pt drink ETOH?: No Does the pt have substance abuse?: No - Immunizations Immunizations are current?: Yes - POLST Patient has POLST: No PD ED PE NORMAL - Vitals Vital signs reviewed: Yes - General General: Alert and oriented X 3, Well developed/nourished - Cardiac Cardiac: RRR, No murmur - Respiratory Respiratory: Clear bilaterally - Abdomen Abdomen: Normal bowel sounds, Soft, Non distended, No organomegaly, Other (minimally tender epigastric without guarding nor percussion tender. ) - Derm Derm: Warm and dry. No: Normal color (mild pallor. ) Results - Vitals Vitals: Oxygen O2 Source Room air - Labs Labs: Laboratory Tests 06/18/24 06/18/24 06/18/24 08:08 08:08 08:08 WBC 4.9 RBC 4.47 Hgb 7.9 L Hct 27.9 L MCV 62.4 L MCH 17.7 L MCHC 28.3 L RDW 18.7 H Plt Count 266 Neut # (Auto) 3.0 Lymph # (Auto) 1.4 L [place] # (Auto) 0.4 Eos # (Auto) 0.1 Baso # (Auto) 0.1 Absolute Nucleated RBC 0.00 Nucleated RBC % 0.0 Manual Slide Review Indicated WBC Morphology NORMAL APPEARANCE Platelet Estimate NORMAL (130-450,000) Platelet Morphology NORMAL APPEARANCE RBC Morph Micro Appear 1+ STOMATOCYTES Sodium 136 Potassium 3.8 Chloride 103 Carbon Dioxide 26 Anion Gap 7.0 BUN 8 Creatinine 0.7 Estimated GFR (MDRD) 91 Glucose 98 Calcium 9.6 Phosphorus 3.1 Magnesium 1.8 Total Bilirubin 0.4 AST 12 ALT 6 L Alkaline Phosphatase 56 Total Protein 7.4 Albumin 4.6 Globulin 2.8 Albumin/Globulin Ratio 1.6 Lipase 25 TSH 2.60 PD Medical Decision Making - ED course Complexity details: reviewed results, re-evaluated patient (She is given IV fluids along with medication to help with nausea here. She states improved symptoms. She is able to take fluids orally. I can renew her Reglan prescription and we can also try other medication combinations. Some element could be considered gastritis perhaps so add famotidine too ), considered differential (chronic nausea with evals of imaging, EGD, etc. Similar symptoms, so shared decison not to do imaging. However to chem labs re: lytes, renal function, etc.), d/w patient Departure - Departure Disposition: 01 Home, Self Care Clinical Impression: Chronic nausea, Chronic anemia Condition: Stable Record reviewed to determine appropriate education?: Yes Follow-Up: FUNMILAYO MACEDO NP [Primary Care Provider] - Prescriptions: Famotidine [Pepcid] 20 mg PO DAILY #30 tablet Metoclopramide [Reglan] 10 mg PO HS 30 Days #30 tablet Sertraline [Zoloft] 75 mg PO DAILY #45 tablet Comments: Regarding your nausea, I did write a prescription for some more of the Reglan to take at night since it had been helping you previously. I would suggest some antacid oral medicine at night before bed, such as Maalox or Mylanta type medicines or even the chewable tablet version like Tums if the liquid texture is not palatable. I had previously prescribed sucralfate. I understand that was a bit thicker and is not the best tasting, so is okay to not be using it. I would also suggest a different daily acid reducing medicine and wrote for famotidine daily for the next month. You can continue the omeprazole as current. In addition as discussed, you could increase your Zoloft from 50 mg to 75 mg daily. Follow-up with your primary care next month as planned. Text or contact the office sooner if having problems or needing discussion. Return to the ER if needed. I sent your prescriptions to [facility] pharmacy. Follow-up with your GI in September or October when scheduled. Forms: PCP List Discharge Date/Time: 06/18/24 09:45
[2024-06-18 08:11] VITALS: O2SAT 100
[2024-06-18 08:22] LABS: BASOPHILS # (AUTO) 0.1 10^3/uL (0.0-0.1); BASOPHILS % (AUTO) 1.9 %; EOSINOPHILS # (AUTO) 0.1 10^3/uL (0.0-0.7); EOSINOPHILS % (AUTO) 1.2 %; HCT - HEMATOCRIT 27.9 % (37.0-47.0); HGB - HEMOGLOBIN 7.9 g/dL (12.0-16.0); LYMPHOCYTES # (AUTO) 1.4 10^3/uL (1.5-3.5); LYMPHOCYTES % (AUTO) 27.8 %; MEAN CORPUSCULAR HEMOGLOBIN 17.7 pg (27.0-31.0); MEAN CORPUSCULAR HGB CONC 28.3 g/dL (32.0-36.0); MEAN CORPUSCULAR VOLUME 62.4 fL (81.0-99.0); MONOCYTES # (AUTO) 0.4 10^3/uL (0.0-1.0); MONOCYTES % (AUTO) 7.4 %; NEUTROPHILS % (AUTO) 61.5 %; PLT - PLATELET COUNT 266 10^3/uL (130-450); RED BLOOD COUNT 4.47 10^6/uL (4.20-5.40); RED CELL DISTRIBUTION WIDTH 18.7 % (12.0-15.0); SLIDE REVIEW? Indicated; WHITE BLOOD COUNT 4.9 x10^3/uL (4.8-10.8)
[2024-06-18 08:31] LABS: ALBUMIN 4.6 g/dL (3.2-5.5); ALBUMIN/GLOBULIN RATIO 1.6 (1.0-2.2); BILIRUBIN,TOTAL 0.4 mg/dL (0.2-1.0); CALCIUM 9.6 mg/dL (8.5-10.3); CREATININE 0.7 mg/dL (0.6-1.3); POTASSIUM 3.8 mmol/L (3.5-4.5); TOTAL PROTEIN 7.4 g/dL (6.4-8.9)
[2024-06-18] MEDS: FAMOTIDINE 20 MG/2 ML VIAL IVP STA (08:32)
[2024-06-18] MEDS: METOCLOPRAMIDE 10 MG/2 ML VIAL IVP STA (08:32)
[2024-06-18] MEDS: SODIUM CHLORIDE 0.9% 1,000 ML IV STA (08:33)
[2024-06-18 08:36] LABS: MAGNESIUM 1.8 mg/dL (1.7-2.3)
[2024-06-18 08:40] LABS: PLATELET ESTIMATE, MANUAL NORMAL (130-450,000) (NORMAL); PLATELET MORPHOLOGY NORMAL APPEARANCE (NORMAL)
[2024-06-18 08:42] LABS: PHOSPHORUS 3.1 mg/dL (2.5-5.0)
[2024-06-18 08:43] LABS: WBC MORPHOLOGY (MULTIPLE) NORMAL APPEARANCE (NORMAL)
[2024-06-18 08:57] LABS: THYROID STIMULATING HORMONE 2.6 uIU/mL (0.34-5.60)
[2024-06-18 09:51] VITALS: BP 103/58
== END 2024-06-18 09:45 | disposition home or self-care (01) ==
LOC: ED 07:47
DX: D64.9 Anemia, unspecified (principal); R11.0 Nausea
CPT/HCPCS: 36415; 80053; 83690; 83735; 84100; 84443; 85025; 96374; 99283; J2765

== ENCOUNTER 2024-06-25 16:37 | Outpatient (CLI) | payer OTHER ==
--- NOTE | 2024-06-26 22:36 | Ultrasound Report ---
PROCEDURE: Pelvic Complete INDICATIONS: AUB TECHNIQUE: Real-time transabdominal scanning was performed of the pelvic organs, with image documentation. COMPARISON: None FINDINGS: Uterus: Uterus is anteverted and normal in size at 11.8 x 4.8 x 7.2 cm. The myometrium is heterogen eous. The endometrium measures 9.6 mm in combined thickness. No fibroids Ovaries: The right ovary measures 2.8 x 1.8 x 3.2 cm, with a calculated ovarian volume of 8.3 cc. T he left ovary measures 3.8 x 3.0 x 3.3 cm, with a calculated ovarian volume of 19.8 cc. The ovaries have a normal sonographic appearance. Less than 12 follicles can be seen in each ovary. No adnexal masses are seen. No cystic lesions measuring greater than 3 cm.. There is a 2.5 cm maximum diameter r ight renal cyst and a 2.6 cm maximum diameter left renal cyst. Other: No free pelvic fluid. IMPRESSION: Unremarkable pelvic ultrasound. Reviewed by: Jose J Matthews MD on 06/26/2024 10:35 PM PDT Approved by: Jose J Matthews MD on 06/26/2024 10:35 PM PDT Station ID: [id number]
== END 2024-06-25 16:38 | disposition home or self-care (01) ==
LOC: DI 16:37
PROVIDERS: ATTEND Obstetrics & Gynecology
DX: N93.8 Other specified abnormal uterine and vaginal bleeding (principal)